=== PATIENT | female | born 1980 | race Caucasian/White ===

== ENCOUNTER 2018-04-30 09:56 | Outpatient (REF) | payer MEDICAID, SELFPAY ==
[2018-04-30 21:06] LABS: HCT 41.2 % (36.0-46.0); HGB 13.8 g/dL (12.0-15.5); Mean Corp. HGB Concentration 33.5 g/dL (32.0-36.0); Mean Corpuscular Hemoglobin 31.9 pg (27.0-33.0); Mean Corpuscular Volume 95.4 fL (80-95); Mean Platelet Volume 11.1 fL (8.0-11.0); Platelet Count 257 x1000/uL (130-400); RBC 4.32 m/cumm (4.00-5.20); RBC Distribution Width 13.1 % (11.7-14.6); White Blood Cell Count 8.14 k/cumm (4.4-10.8)
[2018-04-30 21:53] LABS: ALT 20 U/L (12-78); AST 12 U/L (15-37); Alkaline Phosphatase 74 U/L (46-116); Anion Gap 9.1 mmol/L (3-11); BUN 15 mg/dL (7-18); Bilirubin, Total 0.6 mg/dL (0.2-1.0); CO2 24.9 mmol/L (21.0-32.0); Calcium 8.5 mg/dL (8.5-10.1); Chloride 106 mmol/L (98-107); Cholesterol 161 mg/dL (50-200); Ferritin 62 ng/mL (8-388); Glucose 105 mg/dL (70-100); HDL Cholesterol 75 mg/dL (40-60); LDL CHOLESTEROL 76 mg/dL (<100); Potassium 4.5 mmol/L (3.5-5.1); Sodium 140 mmol/L (136-145); Total Protein 7.1 g/dL (6.4-8.2); Triglyceride 27 mg/dL (30-150)
[2018-05-02 14:02] LABS: Lyme Ab w Rflx to Lyme Confirm Negative
[2018-05-02 23:26] LABS: Anaplasma phagocytophilum Negative (Negative); B. miyamotoi PCR Negative (Negative); Babesia divergens/MO-1 Negative (Negative); Babesia duncani Negative (Negative); Babesia microti Negative (Negative); Ehrlichia chaffeensis Negative (Negative); Ehrlichia ewingii/canis Negative (Negative); Ehrlichia muris eauclairensis Negative (Negative)
== END 2018-04-30 09:57 ==
LOC: NCHCN 09:56
PROVIDERS: PCP Physician Assistant; Visit Provider Physician Assistant Medical
DX: R53.83 Other fatigue (principal); G25.81 Restless legs syndrome; Z13.220 Encounter for screening for lipoid disorders; Z00.00 Encounter for general adult medical examination without abnormal findings
CPT/HCPCS: 80053; 80061; 83721; 85027; 82728; 84443; 86618; 87798

== ENCOUNTER 2018-10-09 15:46 | Outpatient (REF) | payer MEDICAID, SELFPAY ==
[2018-10-11 12:26] LABS: Chlamydia Result Negative; GC Result Negative; Specimen Description CERVIX
== END 2018-10-09 16:06 ==
LOC: LBN 15:46
PROVIDERS: PCP Physician Assistant; Visit Provider Nurse Practitioner Women's Health
DX: Z11.3 Encounter for screening for infections with a predominantly sexual mode of transmission (principal)
CPT/HCPCS: 87491; 87591

== ENCOUNTER 2018-11-20 10:49 | Outpatient (REF) | payer MEDICAID, SELFPAY ==
--- NOTE | 2018-11-20 10:20 | PAPFT_PTH ---
PATIENT: ELIGIO GONZALEZ LOC: [facility] U#:[id number] AGE/SX: 37/F ROOM: RE11/20/[address]: Leticia Coleman NP : 1980 BED: DIS: 11/20/2018 SPEC #: [id number] RECD: 11/20/18 12:59 STATUS: PATRIA RELeah #: [id number] SUKHJINDER: 11/20/18 10:[address]: Leticia Coleman NP DEPT: FORMER[facility], 1928–1983 Cytology RECD BY: Davina Lancaster ENTERED: 11/20/18 12:59 SP TYPE: PAPFT MAGAN DR: Marian Lambert Tissues: 1 - CX/ENDOCX FOR PAP SMEARS Procedures: PAP THIN PREP/[facility] Screening HPV DNA PROBE Comments: [id number]
== END 2018-11-20 11:09 ==
LOC: LBN 10:49
PROVIDERS: Visit Provider Nurse Practitioner Women's Health
DX: Z12.4 Encounter for screening for malignant neoplasm of cervix (principal); Z11.51 Encounter for screening for human papillomavirus (HPV)
CPT/HCPCS: 88142; 87624

== ENCOUNTER 2018-12-05 10:26 | Outpatient (REF) | payer SELFPAY ==
--- NOTE | 2018-12-05 09:20 | CER_PTH ---
PATIENT: ELIGIO GONZALEZ LOC: [facility] U#:[id number] AGE/SX: 38/F ROOM: RE12/05/[address]: Chaim Bey MD : 1980 BED: DIS: 12/05/2018 SPEC #: [id number] RECD: 12/05/18 11:50 STATUS: PATRIA BUTCHER #: [id number] SUKHJINDER: 12/05/18 09:[address]: Chaim Bey DEPT: Surgical Specimen RECD BY: Yobany Reynaga ENTERED: 12/05/18 11:52 SP TYPE: CER MAGAN DR: Marian Labmert, ROSEANN Tissues: 1 - CERVICAL BIOPSY 2 - CERVICAL BIOPSY 3 - ENDOCERVICAL BX/CURRETTE Procedures: GROSS AND MICRO LEVEL 4 Comments: [id number]
== END 2018-12-05 10:46 ==
LOC: LBN 10:26
PROVIDERS: PCP Physician Assistant; Visit Provider Obstetrics & Gynecology
DX: N88.8 Other specified noninflammatory disorders of cervix uteri (principal); R87.612 Low grade squamous intraepithelial lesion on cytologic smear of cervix (LGSIL); B97.7 Papillomavirus as the cause of diseases classified elsewhere
CPT/HCPCS: 88305

== ENCOUNTER 2020-02-12 15:40 | Outpatient (REF) | payer MEDICAID, SELFPAY ==
--- NOTE | 2020-02-12 15:20 | SKI_PTH ---
PATIENT: ELIGIO GONZALEZ LOC: [facility] U#:[id number] AGE/SX: 39/F ROOM: RE02/12/[address]: Lorene Vieira V : 1980 BED: DIS: 02/12/2020 SPEC #: [id number] RECD: 02/13/20 11:43 STATUS: PATRIA RELeah #: [id number] SUKHJINDER: 02/12/20 15:[address]: Lorene Vieira V DEPT: Surgical Specimen RECD BY: Davina Lancaster ENTERED: 02/13/20 11:44 SP TYPE: DINA CARRERO DR: Marian Lambert Tissues: 1 - SKIN BIOPSY(SHAVE/PUNCH) Procedures: SKIN LEVEL 4 Comments: [id number]
== END 2020-02-12 16:00 ==
LOC: NCHCN 15:40
PROVIDERS: PCP Physician Assistant; Visit Provider Family Medicine
DX: L73.8 Other specified follicular disorders (principal)
CPT/HCPCS: 88305